=== PATIENT | male | born 1995 | race Two or more races ===

== ENCOUNTER 2025-08-29 23:43 | Emergency (ER) | payer MEDICAID, OTHER ==
[~2025-08-29] VITALS: Ht 172.7 cm; Wt 95.3 kg
[2025-08-29] MEDS ORDERED: LORAZEPAM INJ 2 MG/ML VIAL ONE (23:54)
[2025-08-30] MEDS: LORAZEPAM INJ 2 MG/ML VIAL IM ONE (00:02)
[2025-08-30 02:54] LABS: APPEARANCE,URINE CLEAR (CLEAR); BLOOD, URINE NEGATIVE Ery/uL (NEGATIVE); LEUKOCYTE ESTERASE ,URINE NEGATIVE (NEGATIVE); NITRITE, URINE NEGATIVE (NEGATIVE); UGLUCOSE NEGATIVE (NEGATIVE)
[2025-08-30 03:16] LABS: AMPHETAMINE, URINE NEGATIVE (NEGATIVE); BARBITURATE, URINE NEGATIVE (NEGATIVE); BENZODIAZEPINE, URINE POSITIVE (NEGATIVE); CANNABINOID, URINE POSITIVE (NEGATIVE); COCCAINE, URINE NEGATIVE (NEGATIVE); OPIATE, URINE NEGATIVE (NEGATIVE)
[2025-08-30] MEDS ORDERED: OLANZAPINE 10 MG VIAL IM ONE (03:28)
[2025-08-30] MEDS: OLANZAPINE 10 MG VIAL IM ONE (03:35)
[2025-08-30 04:26] LABS: PLATELET COUNT (AUTO) 385 K/uL (150-450); RED BLOOD CELL COUNT(AUTO) 4.45 MIL/uL (4.5-6.0); RED CELL DISTRIBUTION WIDTH 15.3 % (11.5-15.0); WHITE BLOOD COUNT (AUTO) 6.8 K/uL (4.3-11.0)
[2025-08-30 04:50] LABS: CALCIUM, SERUM 8.7 mg/dL (8.5-10.1); CREATININE 1.1 mg/dL (0.6-1.3); SODIUM SERUM 145 mmol/L (136-145); UREA NITROGEN, BLOOD 12 mg/dL (7-18)
[2025-08-30 04:56] LABS: ALCOHOL, BLOOD 82 mg/dL (0-10); ASPARTATE AMINOTRANSFERASE 21 U/L (15-37); TOTAL PROTEIN, SERUM 8.4 g/dL (6.4-8.2)
[2025-08-30 07:30] VITALS: BP 147/88; TEMP 98.5; O2SAT 96
== END 2025-08-30 08:49 ==
LOC: ER 23:46
DX: R45.851 Suicidal ideations (principal); F19.10 Other psychoactive substance abuse, uncomplicated; Z79.899 Other long term (current) drug therapy
CPT/HCPCS: 99285; 36415; 80307; 96372 ×2; 85025; 80048; 80076; 81003; 80143; 80320; 98960; J2060; J3490; G0480